=== PATIENT | female | born 1990 | race Caucasian/White ===

== ENCOUNTER 2024-07-28 04:17 | Emergency (ER) | payer MEDICAID ==
[~2024-07-28] VITALS: Ht 160 cm; Wt 82.0 kg
[2024-07-28 04:25] VITALS: TEMP 36.8; O2SAT 100
[2024-07-28] MEDS ORDERED: AMOX500T2 MT (04:54)
[2024-07-28 05:06] VITALS: BP 122/58; PULSE 87; RESP 18; O2SAT 100
== END 2024-07-28 05:05 | disposition home or self-care (01) ==
LOC: ER 04:17
DX: H66.91 Otitis media, unspecified, right ear (principal); J45.909 Unspecified asthma, uncomplicated
CPT/HCPCS: 99283